=== PATIENT | female | born 1955 | race Caucasian/White ===

== ENCOUNTER 2018-06-20 09:53 | Outpatient (REF) | payer OTHER, SELFPAY ==
--- NOTE | 2018-06-20 09:00 | PAPFT_PTH ---
PATIENT: Viki Morris LOC: [facility] U#:[id number] AGE/SX: 62/F ROOM: RE06/20/[address]: Berenice Gonzalez : 1955 BED: DIS: 06/20/2018 SPEC #: [id number] RECD: 06/20/18 12:53 STATUS: MELIDA REQ #: [id number] [facility]: 06/20/18 09:[address]: Berenice Gonzalez DEPT: [facility] Cytology RECD BY: Bryanna Rosenberg ENTERED: 06/20/18 12:53 SP TYPE: PAPFT OTHR DR: Rosalva Ferguson Tissues: 1 - CX/ENDOCX FOR PAP SMEARS Procedures: PAP THIN PREP/UVM Screening HPV DNA PROBE Comments: [id number]
== END 2018-06-20 10:13 ==
LOC: LBN 09:53
PROVIDERS: PCP Family Medicine; Visit Provider Obstetrics & Gynecology Gynecology
DX: Z12.4 Encounter for screening for malignant neoplasm of cervix (principal); Z11.51 Encounter for screening for human papillomavirus (HPV)
CPT/HCPCS: 88142; 87624

== ENCOUNTER 2018-06-27 09:45 | Outpatient (CLI) | payer OTHER, SELFPAY ==
[2018-06-27 11:31] LABS: Anion Gap 6.3 mmol/L (3-11); BUN 15 mg/dL (7-18); CO2 30.7 mmol/L (21.0-32.0); CREATININE 0.68 mg/dL (0.55-1.02); Calcium 9.4 mg/dL (8.5-10.1); Chloride 104 mmol/L (98-107); Glucose 146 mg/dL (70-100); Potassium 4.4 mmol/L (3.5-5.1); Sodium 141 mmol/L (136-145)
[2018-06-28 10:24] LABS: Hepatitis C Ab w Rflx HCV PCR Negative (NEGAT)
== END 2018-06-27 10:05 ==
PROVIDERS: PCP Family Medicine; Visit Provider Family Medicine
DX: E10.319 Type 1 diabetes mellitus with unspecified diabetic retinopathy without macular edema (principal); Z11.59 Encounter for screening for other viral diseases
CPT/HCPCS: 36415; 80048; 86803

== ENCOUNTER 2018-06-27 12:24 | Outpatient (REF) | payer OTHER, SELFPAY ==
[2018-06-27 13:34] LABS: COMMENT (LAB VIEW ONLY) 60.19 mg/dL; Microalb ug/mg Crea 8.1 ug/mg Cr
== END 2018-06-27 12:44 ==
LOC: NCHCN 12:24
PROVIDERS: PCP Family Medicine; Visit Provider Family Medicine
DX: E10.319 Type 1 diabetes mellitus with unspecified diabetic retinopathy without macular edema (principal)
CPT/HCPCS: 82043; 82570

== ENCOUNTER 2018-07-11 00:30 | Outpatient (CLI) | payer OTHER, SELFPAY ==
--- NOTE | 2018-07-11 09:30 | DI.MAMMO_ITS ---
SYMPTOMS/DIAGNOSIS: PREVENTATIVE CARE, Z00.00, SCREENING, Z12.31 MAMMOGRAMS: Mammograms were interpreted according to the usual protocol including computer analysis with CAD system, tomosynthesis and C view imaging. Comparison with prior examinations. Breast density C. No suspicious masses or microcalcifications are seen. There is no definite evidence of malignancy. IMPRESSION: Negative mammogram. Routine screening is recommended. Category I. MQSA ASSESSMENT OF FINDINGS: Negative. Category 1. Patient will receive a letter notifying them of these results. Bi-RADS category C. The breasts are heterogeneously dense, which may obscure small masses.
== END 2018-07-11 00:50 ==
PROVIDERS: PCP Family Medicine; Visit Provider Obstetrics & Gynecology Gynecology
DX: Z00.00 Encounter for general adult medical examination without abnormal findings (principal); Z12.31 Encounter for screening mammogram for malignant neoplasm of breast
CPT/HCPCS: 77063; 77067

== ENCOUNTER 2018-12-22 07:00 | Outpatient (CLI) | payer OTHER, SELFPAY ==
--- NOTE | 2018-12-22 08:42 | DI.MRI_ITS ---
SYMPTOM/DIAGNOSIS: BACK KPAIN LUMBAR M54.5, SCIATICA LT M54.32 LUMBAR MRI: The study was carried out according to the usual protocol. T2 and T1 sagittal and T1 STIR sagittal and T1 and T2 axial, and T2 axial MSMA pulsed sequences were performed. Severe end plate degenerative changes are identified at L1-2 where there is disc narrowing. There is no evidence of a disc protrusion. There are moderate facet joint degenerative changes and no evidence of spinal stenosis. At L2-3 a disc bulge is demonstrated. There is no evidence of a haile disc herniation. Degenerative changes involving the facet joints are identified. There is no evidence of significant spinal stenosis. At L3-4 there is a small left sided disc herniation. Moderate facet joint degenerative changes are demonstrated and there is prominence of the ligamentum flavum. Severe left neural foraminal stenosis is demonstrated. At L4-5 there are moderate end plate degenerative changes and prominence of the ligamentum flavum and facet joint DJD is evident. Moderate bilateral foraminal stenosis is noted more advanced on the right side. A small disc bulge is evident. There are moderately severe facet joint degenerative changes and no evidence of significant spinal stenosis. There is no evident abnormality involving the lower dorsal cord, conus or phylum terminale. SUMMARY: Findings consistent with multi-level degenerative disc disease and DJD A left sided disc herniation is identified at L2-3 as noted above resulting in left foraminal stenosis. Also there is moderate foraminal stenosis at L4-5 most advanced on the right side. Please see the above discussion.
== END 2018-12-22 07:20 ==
PROVIDERS: PCP Family Medicine; Visit Provider Family Medicine
DX: M54.5 Low back pain (principal); M54.32 Sciatica, left side; M51.36 Other intervertebral disc degeneration, lumbar region; M47.816 Spondylosis without myelopathy or radiculopathy, lumbar region; M51.26 Other intervertebral disc displacement, lumbar region
CPT/HCPCS: 72148

== ENCOUNTER 2019-08-30 14:29 | Emergency (ER) | payer OTHER, SELFPAY ==
[2019-08-30 14:33] VITALS: BP 126/73; PULSE 80; RESP 14; TEMP 36.8; O2SAT 100
--- NOTE | 2019-08-30 15:00 | DI.RAD_ITS ---
EXAM: XR SHOULDER RT COMPLETE 2+V CLINICAL HISTORY: pain, fall c/o fracture humeral neck TECHNIQUE: COMPARISON: LEFT SHOULDER COMPLETE from 09/12/2011 CHEST 2 VIEWS PA,LAT from 06/09/2017 FINDINGS: Three views were obtained. There is an apparent nondisplaced fracture of the humeral neck. There ar e marked degenerative changes of the glenohumeral joint. Probable prior resection of the distal clav icle noted. No other significant abnormality seen. No glenohumeral dislocation seen. IMPRESSION: Nondisplaced proximal humeral fracture.
[2019-08-30] MEDS: Acetaminophen 500 MG TAB 1000 MG PO (15:08)
--- NOTE | 2019-08-30 15:43 | W.ED.GENAD ---
Discharge Plan Disposition Patient Disposition: HOME Condition: Stable Discharge Details Chief Complaint: Orthopedic Clinical Impression: Fracture, humerus, neck Primary Care Provider: Rosalva Ferguson ED Provider: Gina Cuevas Home Meds and New Rx's Prescriptions: No Action atorvastatin 10 mg tablet 10 mg PO DAILY RF: 0 enalapril maleate 2.5 MG tablet 2.5 mg PO DAILY RF: 0 naproxen 250 MG tablet 250 mg PO Q12H PRN RF: 0 aspirin [Aspir-81] 81 MG tablet,delayed release (DR/EC) 81 mg PO DAILY RF: 0 insulin lispro [Humalog KwikPen Insulin] 100 UNIT/1 ML insulin pen 3 - 5 units SQ QMEALS RF: 0 Lantus Solostar U-100 Insulin 100 UNIT/1 ML insulin pen 14 u Sub-Q DAILY RF: 0 cholecalciferol (vitamin D3) [Vitamin D3] 2,000 UNIT capsule 2,000 unit PO HS RF: 0 Discharge Instructions Instructions: Proximal Humerus Fracture (ED) Additional Instructions: Rest. Activities as tolerated. Elevate injury to prevent swelling. Sling as discussed. Remove to perform pendulum exercises when tolerable and pain-free. Follow-up with orthopedic doctor for reevaluation as discussed Ice to the area of discomfort for 15 min. 3-5 times daily. Tylenol every 6 hours for soreness if needed over the counter for comfort. Return for any worsening or concerns sooner if needed. Referrals: Nic Kincaid MD [ [facility] STAFF PHYSICIAN] - Medical Decision Making There is a very pleasant 63-year-old patient presenting to the emergency room for complaints of right shoulder injury. Patient sustained a fall after slipping on the ice at home. Patient denies striking head. Denies any other injuries at this time. Patient has focal right shoulder pain. Patient has limited range of motion of her right shoulder, focal proximal humeral tenderness on exam without obvious deformities present. No other joint tenderness noted. Distal neurovascularly intact. Pulses intact. Furnace Tapper strength normal. Patient has nothing to indicate head injury, neck or back injury at this time. No other extremity complaints. Patient vital signs were reviewed and are stable. Patient is alert and oriented mentating without difficulty. Patient's neurologic exam is normal. We will plan to x-ray the right shoulder. Provided Tylenol for discomfort. Patient agrees with this plan of care. X-ray reveals humeral neck fracture of the right, nondisplaced. Discussed with patient. Rice encouraged, sling encouraged, pendulum exercises discussed when tolerated. Recommended follow-up with orthopedics. Discussed need for pain medication and patient declines at this time would prefer [id number] medication. Counseled regarding appropriate care and management. Patient reports her understanding. Feels appropriate for discharge home at this time. No new complaints have developed since arrival to the emergency room. The patient was stable and requested discharge. Prior to discharge, my usual and customary return precautions were reviewed with the patient - this included follow-up instructions and reasons to return to the Emergency Department if conditions worsens, does not improve as expected, or other new concerns arise. HPI General Date/Time Provider Initiated Documentation: 08/30/19 14:42. HPI Narrative: This is a very pleasant 63-year-old patient presenting to the emergency room for complaints of right shoulder injury. Patient reports she tripped slipped and fell on ice in her yard landing on her right shoulder. Patient reports no loss of consciousness, headache, dizziness, nausea, vomiting, vision change, blurred vision, double vision. Patient denies any current numbness, tingling or weakness in her extremities. Patient denies neck or back pain. Patient points to the proximal right shoulder as site of pain. Patient denies any chest pain, difficulty beating shortness of breath or wheezing. Denies any pain with deep breathing. Denies abdominal pain. Has urinated since her fall and denies any hematuria. No lower extremity complaints. Able to ambulate without difficulty. Arrived by private car. Related Data Home Medications Medication Instructions Recorded Confirmed Lantus Solostar U-100 Insulin 14 u SUB-Q DAILY 06/07/15 08/30/19 aspirin [Aspir-81] 81 mg PO DAILY tab-cap 06/07/15 08/30/19 cholecalciferol (vitamin D3) 2,000 unit PO HS 06/07/15 08/30/19 [Vitamin D3] enalapril maleate 2.5 mg PO DAILY tab-cap 06/07/15 08/30/19 insulin lispro [Humalog KwikPen 3 - 5 units SQ QMEALS 06/07/15 08/30/19 Insulin] naproxen 250 mg PO Q12H PRN tab-cap 01/15/16 04/08/20 atorvastatin 10 mg tablet 10 mg PO DAILY 06/20/18 08/30/19 Allergies Allergy/AdvReac Type Severity Reaction Status Date / Time amoxicillin AdvReac Itchy hands Unverified 08/30/19 14:44 General Stated Complaint: Orthopedic DWAIN: 3 Review of Systems All systems reviewed & are unremarkable except as noted in HPI and below Constitutional Constitutional: Denies fatigue, Denies headache(s) and Denies malaise Eyes Eyes: Denies blurry vision, Denies change in vision and Denies diplopia ENT Ears, Nose, Mouth, and Throat: Denies headache(s) and Denies neck pain Cardiovascular Cardiovascular: Denies chest pain and Denies dyspnea Respiratory Respiratory: Denies cough and Denies dyspnea Gastrointestinal Gastrointestinal: Denies abdominal pain Genitourinary Genitourinary: Denies hematuria Musculoskeletal Musculoskeletal: Denies abnormal gait, Denies back pain, Denies deformity, Denies joint swelling, Reports limited range of motion (Right shoulder), Denies neck pain, Denies numbness, Denies radiating pain into limb and Denies tingling Integumentary/Breasts Skin/Breast: Denies wounds Neurologic Neurologic: Denies abnormal gait, Denies headache(s), Denies numbness and Denies tingling Endocrine Endocrine: Denies fatigue [facility] Medical History Diabetes Hyperlipidemia Neutropenia Surgical History Open Carpal Tunnel release Rotator Cuff Repair Trigger Finger release Family History Grandfather Diabetes Essential hypertension Heart disease Grandfather Personal history of malignant neoplasm stomach Social History Smoking/Tobacco Use Status: Never Alcohol Intake: current Alcohol Intake frequency: 0-2 drinks per day Drug use: Never Substance use type: does not use Household members: spouse Number of Children: 0 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 Female Reproductive History Menstrual Menopause type: natural History History 1 Para Hx # Term Pregnancies 0 Multiple births Hx # Pregnancies Ectopic pregnancies AB induced Hx Number of Living Children AB spontaneous Exam Narrative Exam Narrative: CONST: Healthy appearing patient, in no acute distress. Well hydrated. Alert and oriented. HENMT: Head nomocephalic, normal to inspection. Atraumatic. Hearing grossly normal. EYES: General normal appearance. Alignment normal. Eyelids normal. Conjunctiva normal. NECK: Normal visual inspection. FROM. Trachea midline. No Midline tenderness. CHEST: Normal insepection of the chest. No palpable chest tenderness through the rib cage bilaterally anteriorly or posteriorly RESP: Normal respiratory effort. Speaking full sentences. No cough. No audible wheezing. No retractions. Breath sounds clear, full and equal bilaterally CARDIO: No JVD. No murmur, regular rate and rhythm Abdomen: Abdomen is soft, nontender. No peritoneal signs, rebound or guarding. No evidence of trauma Back: No midline tenderness through the cervical, thoracic or lumbar spine. No ecchymosis or erythema. No evidence of trauma. MUSCULOSKELETAL: Normal Gait. Normal exam of left arm, and bilateral lower extremities. Strength intact through all extremities. Distal neurovascularly intact. Pulses intact. Right arm exam: No clavicle tenderness noted in the right, proximal humeral tenderness noted, limited range of motion due to pain in the shoulder. No mid to distal humeral tenderness, no elbow pain with palpation with supination pronation intact at elbow. No forearm pain, wrist pain or hand pain with palpation. Pulses intact. Sensation intact distally. Furnace Tapper strength intact of hand. No focal deformities noted SKIN: Normal. Dry. No rashes. NEURO: Alert and awake. Speech clear. Alert and oriented x 3. Speech is clear. Cranial nerves intact as tested III - XI. No Nystagmus. Gait normal. Strength intact in all extremities. Sensation intact in all extremities. PSYCH: Normal affect. Cooperative. Course Vital Signs Vital signs: Vital Signs Temperature 36.8 C 08/30/19 14:33 Pulse 80 08/30/19 14:33 Respiratory Rate 14 08/30/19 14:33 Blood Pressure 126/73 08/30/19 14:33 Pulse Oximetry 100 08/30/19 14:33 Temperature 36.8 C 08/30/19 14:33 Temperature Source Temporal Artery Scan 08/30/19 15:16 Pulse 80 08/30/19 14:33 Respiratory Rate 14 08/30/19 14:33 Respiratory Effort 08/30/19 14:45 Blood Pressure 126/73 08/30/19 14:33 Blood Pressure Position Sitting 08/30/19 14:33 Pulse Oximetry 100 04/08/20 14:33 Oxygen Delivery Method Room Air 08/30/19 14:33 Oxygen Flow Rate 0 08/30/19 14:33 Pain Level 3 08/30/19 14:33 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
--- NOTE | 2019-08-30 16:32 | NUR.NOTE ---
Nursing Note: referral faxed to ortho for follow up alida caban
== END 2019-08-30 16:30 | disposition home or self-care (01) ==
LOC: ER 20:18
PROVIDERS: Emergency Provider Physician Assistant; PCP Family Medicine
DX: S42.294A Other nondisplaced fracture of upper end of right humerus, initial encounter for closed fracture (principal); W00.0XXA Fall on same level due to ice and snow, initial encounter; E11.9 Type 2 diabetes mellitus without complications
CPT/HCPCS: 23600; 73030; L3650

== ENCOUNTER 2019-09-13 10:43 | Outpatient (CLI) | payer OTHER, SELFPAY ==
--- NOTE | 2019-09-13 10:30 | DI.RAD_ITS ---
EXAM: XR SHOULDER RT COMPLETE 2+V CLINICAL HISTORY: fracture TECHNIQUE: 2D digital imaging was performed. COMPARISON: XR SHOULDER RT COMPLETE 2+V from 08/30/2019 FINDINGS: There has been no change in the alignment of the previously noted fracture of the surgical neck of th e humerus. A metallic anchor is again noted in the proximal humerus. There has been previous distal clavicular resection. Spurring is noted at the glenohumeral joint. IMPRESSION: Stable appearance of proximal humeral fracture.
== END 2019-09-13 11:03 ==
PROVIDERS: PCP Family Medicine; Visit Provider Physician Assistant Surgical
DX: S42.211D Unspecified displaced fracture of surgical neck of right humerus, subsequent encounter for fracture with routine healing (principal)
CPT/HCPCS: 73030

== ENCOUNTER 2019-10-25 12:27 | Outpatient (CLI) | payer OTHER, SELFPAY ==
--- NOTE | 2019-10-25 11:15 | DI.RAD_ITS ---
EXAM: XR SHOULDER RT COMPLETE 2+V CLINICAL HISTORY: fu fracture TECHNIQUE: COMPARISON: CR XR SHOULDER RT COMPLETE 2+V from 08/30/2019 CR XR SHOULDER RT COMPLETE 2+V from 09/13/2019 FINDINGS: Two views were obtained. Previously described fracture of the proximal humerus is again noted, no gr oss interval change in alignment of the fracture fragments allowing for differences in projection in comparison with prior films of September 12. Resection of the distal end of the clavicle and degenerative changes of the glenohumeral joint again noted. IMPRESSION:
== END 2019-10-25 12:47 ==
PROVIDERS: PCP Family Medicine; Referring Provider Family Medicine; Visit Provider Student in an Organized Health Care Education/Training Program
DX: S42.211D Unspecified displaced fracture of surgical neck of right humerus, subsequent encounter for fracture with routine healing (principal); M19.011 Primary osteoarthritis, right shoulder
CPT/HCPCS: 73030

== ENCOUNTER 2020-01-01 13:17 | Outpatient (REF) | payer OTHER, SELFPAY ==
[2020-01-03 19:54] LABS: SARS-CoV-2 RNA Undetected (Undetected); SARS-CoV-2 Specimen Source Nasopharynx
== END 2020-01-01 13:37 ==
LOC: NCHCN 13:17
PROVIDERS: PCP Family Medicine; Visit Provider Family Medicine
DX: Z11.59 Encounter for screening for other viral diseases (principal)
CPT/HCPCS: U0003

== ENCOUNTER 2020-01-18 04:27 | Outpatient (CLI) | payer OTHER, SELFPAY ==
[2020-01-18 07:56] LABS: HCT 41.7 % (36.0-46.0); MCH 32.3 pg (27.0-33.0); MCHC 33.6 % (32.0-36.0); MCV 96.3 fL (80-95); MPV 10.6 fL (8.0-11.0); Platelet Count 185 10^3/uL (130-400); RBC 4.33 10^6/uL (3.93-5.22); RDW 11.7 % (11.7-14.6); RDW-SD 41.6 fL; WBC 3.64 10^3/uL (4.4-10.8)
[2020-01-18 08:19] LABS: Hemoglobin A1C 6.8 % (3.8-5.6)
[2020-01-18 08:56] LABS: COMMENT (LAB VIEW ONLY) 83.44 mg/dL; Microalb ug/mg Crea 7.2 ug/mg Cr
[2020-01-18 09:02] LABS: ALT 34 U/L (14-59); AST 22 U/L (15-37); Albumin 3.9 g/dL (3.4-5.0); Alkaline Phosphatase 99 U/L (46-116); BUN 12 mg/dL (7-18); Bilirubin, Total 0.9 mg/dL (0.2-1.0); CREATININE 0.67 mg/dL (0.55-1.02); Calcium 9.1 mg/dL (8.5-10.1); Calculated LDL 76 mg/dL (<100); Chloride 105 mmol/L (98-107); Cholesterol 192 mg/dL (<200); Glucose 161 mg/dL (74-106); HDL Cholesterol 108 mg/dL (40-60); Potassium 4.6 mmol/L (3.5-5.1); Sodium 139 mmol/L (136-145); Total Protein 6.7 g/dL (6.4-8.2); Triglyceride 42 mg/dL (<150)
[2020-01-18 09:14] LABS: Vitamin D 25 Total 39.9 ng/ml (30-100)
== END 2020-01-18 04:47 ==
PROVIDERS: PCP Family Medicine; Visit Provider Family Medicine
DX: Z00.00 Encounter for general adult medical examination without abnormal findings (principal); E10.319 Type 1 diabetes mellitus with unspecified diabetic retinopathy without macular edema; E78.5 Hyperlipidemia, unspecified; D70.9 Neutropenia, unspecified
CPT/HCPCS: 36415; 80053; 80061; 82306; 85027; 82043; 82570; 83036

== ENCOUNTER 2020-05-28 00:47 | Outpatient (CLI) | payer OTHER, SELFPAY ==
--- NOTE | 2020-05-28 | DI.MAMMO_ITS ---
EXAM: MG MAMMO SCREENING CLINICAL HISTORY: SCREENING,Z12.31 TECHNIQUE: Bilateral full field digital CC and MLO mammographic images were obtained with 3D tomosyn thesis and utilizing computer aided detection (CAD). COMPARISON: Available for comparison. FINDINGS: Masses/Architectural Distortion: None seen. Microcalcifications: No suspicious pleomorphic-type are seen. Skin Thickening/Nipple Retraction: None. IMPRESSION: 1. No significant interval change with no specific features of malignancy noted. 2. Unless there is more urgent need, screening mammography is recommended, as per [employer] guidelines. BI-RADS Category 1 - Negative Breast Density - Category C - Heterogeneously dense Breast density category C or D implies that the patient has dense breast tissue. Dense breast tissue is very common and is not abnormal but dense breast tissue can make it harder to find cancer on a ma mmogram. Also, dense breast tissue may increase their breast cancer risk. This information about the result of the mammogram report was provided to the patient to raise their awareness. Use this report when you speak with the patient about their risks for breast cancer, which includes their family hist ory. At that time, you may recommend for more screening tests (Ultrasound or MRI) as they might be us eful based on their risk. A negative radiographic report should not delay biopsy if a dominant or clinically suspicious mass is present. Up to ten percent of cancers are not identified on mammography. A negative report may reinforce clinical impression. Adenosis and dense breasts may obscure an underlying neoplasm. False positive reports average 6 to 10%. Patient will receive a letter notifying them of these results.
== END 2020-05-28 01:07 ==
PROVIDERS: PCP Family Medicine; Visit Provider Family Medicine
DX: Z12.31 Encounter for screening mammogram for malignant neoplasm of breast (principal)
CPT/HCPCS: 77063; 77067

== ENCOUNTER 2020-09-04 18:00 | Outpatient (CLI) | payer OTHER, SELFPAY ==
--- NOTE | 2020-09-04 | DI.RAD_ITS ---
EXAM: XR FOOT LT COMPLETE CLINICAL HISTORY: LT FOOT PAIN, M79.672, NO TRAUMA, PAIN LT 5TH TOE/METATARSAL, ? STRESS FX. TECHNIQUE: 2D digital imaging was performed. COMPARISON: No exams were available for comparison FINDINGS: There is no evidence of acute fracture or diastasis of the Lisfranc joint. No osseous lesions nor er osions. No osseous tarsal coalition. No radiopaque foreign body. IMPRESSION: No fracture evident. DATA REPOSITORY: RADIATION DOSE DELIVERED:
== END 2020-09-04 18:20 ==
PROVIDERS: PCP Family Medicine; Visit Provider Family Medicine
DX: M79.672 Pain in left foot (principal); M79.675 Pain in left toe(s)
CPT/HCPCS: 73630

== ENCOUNTER 2020-10-28 18:42 | Outpatient (REF) | payer OTHER, SELFPAY ==
[2020-10-28 19:04] LABS: COMMENT (LAB VIEW ONLY) 34.22 mg/dL; Microalb ug/mg Crea 5.3 ug/mg Cr
== END 2020-10-28 18:43 | disposition home or self-care (01) ==
LOC: NCHCN 18:42
PROVIDERS: PCP Family Medicine; Visit Provider Family Medicine
DX: E10.319 Type 1 diabetes mellitus with unspecified diabetic retinopathy without macular edema (principal)
CPT/HCPCS: 82043; 82570

== ENCOUNTER 2021-04-02 19:15 | Outpatient (REF) | payer OTHER, SELFPAY ==
[2021-04-04 15:54] LABS: COVID-19 RT-PCR UVMMC Result Negative (Negative)
[2021-04-04 21:30] LABS: C Diff PCR Negative (Negative)
[2021-04-06 23:03] LABS: Campylobacter PCR Negative (Negative); Salmonella PCR Negative (Negative); Shiga Toxin PCR Negative (Negative); Shigella/Enteroinvasive Ecoli Negative (Negative)
[2021-04-08 18:05] LABS: Calprotectin <15.6 mcg/g
== END 2021-04-02 19:16 | disposition home or self-care (01) ==
LOC: NCHCN 19:15
PROVIDERS: PCP Family Medicine; Visit Provider Family Medicine
DX: Z20.822 Contact with and (suspected) exposure to COVID-19 (principal); R19.7 Diarrhea, unspecified
CPT/HCPCS: 87329; 87493; 87505; U0003; 83993

== ENCOUNTER 2021-04-30 02:14 | Outpatient (CLI) | payer OTHER, SELFPAY ==
[2021-04-30 14:49] LABS: Abs Immature Grans 0.01 10^3/uL (0.0-0.06); Absolute Basophil Count 0.03 10^3/uL (0.0-0.2); Absolute Eosinophil Count 0.11 10^3/uL (0.0-0.7); Absolute Neutrophil Count 2.84 10^3/uL (1.2-6.7); Basophils % 0.6; Eosinophils % 2.2; HCT 38.9 % (36.0-46.0); HGB 12.8 g/dL (11.2-15.7); Immature Grans % 0.2; Lymphocytes % 32.1; MCH 32.2 pg (27.0-33.0); MCHC 32.9 % (32.0-36.0); MCV 97.7 fL (80-95); MPV 9.8 fL (8.0-11.0); Neutrophils % 56.9; Nucleated RBC 0 %; Platelet Count 181 10^3/uL (130-400); RBC 3.98 10^6/uL (3.93-5.22); RDW 11.8 % (11.7-14.6); RDW-SD 42.7 fL; WBC 4.99 10^3/uL (4.4-10.8)
[2021-04-30 15:27] LABS: Hemoglobin A1C 6.6 % (<5.7)
[2021-04-30 16:10] LABS: Anion Gap 7.5 mmol/L (3-11); BUN 13 mg/dL (7-18); CO2 30.5 mmol/L (21.0-32.0); CREATININE 0.8 mg/dL (0.55-1.02); Calcium 9.1 mg/dL (8.5-10.1); Chloride 102 mmol/L (98-107); Glucose 201 mg/dL (74-106); Sodium 140 mmol/L (136-145)
== END 2021-04-30 02:15 | disposition home or self-care (01) ==
LOC: LBO 02:14
PROVIDERS: PCP Family Medicine; Visit Provider Family Medicine
DX: E10.319 Type 1 diabetes mellitus with unspecified diabetic retinopathy without macular edema (principal); D70.9 Neutropenia, unspecified
CPT/HCPCS: 36415; 80048; 83036; 85025

== ENCOUNTER 2021-05-05 10:23 | Outpatient (REF) | payer OTHER, SELFPAY ==
[2021-05-05 18:48] LABS: Ferritin 111 ng/mL (8-252)
[2021-05-07 11:39] LABS: IgA 106 mg/dL (85-499); Interpretation (See Note); Tissue Transglutaminase IgA <1.2 U/mL (<4.0)
== END 2021-05-05 10:24 | disposition home or self-care (01) ==
LOC: NCHCN 10:23
PROVIDERS: PCP Family Medicine; Visit Provider Family Medicine
DX: D64.9 Anemia, unspecified (principal); R10.9 Unspecified abdominal pain; R19.7 Diarrhea, unspecified
CPT/HCPCS: 82784; 83516; 82728

== ENCOUNTER 2021-06-02 01:19 | Outpatient (CLI) | payer OTHER, SELFPAY ==
--- NOTE | 2021-06-02 08:00 | DI.MAMMO_ITS ---
Exam(s) MAMMO SCREENING EXAM: MAMMO SCREENING CLINICAL HISTORY: SCREENING, Z12.31 TECHNIQUE: Mammograms were interpreted according to the usual protocol including computer analysis w [facility] CAD system, tomosynthesis and C-view imaging. COMPARISON: 2012 through 2020 FINDINGS: The breasts are composed of heterogeneously dense fibroglandular densities, Breast Density category C . No suspicious masses or suspicious microcalcifications are seen. No skin thickening or abnormal axillary lymph nodes are seen. There has been no significant change from prior exams. IMPRESSION: BI-RADS Category 1, Negative mammogram. Yearly screening mammography is recommended. Breast Density Category C, heterogeneously Dense. The mammogram demonstrates the patient's breast tissue is dense. Dense breast tissue is very common a nd is not abnormal but dense breast tissue can make it harder to find cancer on a mammogram. Also, de nse breast tissue may increase breast cancer risk. This information about the result of the mammogram report was provided to the patient to raise their awareness. Use this report when you speak with the patient about their risks for breast cancer, which includes their family history. At that time, you may recommend additional screening tests (Ultrasound or MRI) as they might be useful based on their r isk. A negative radiographic report should not delay biopsy if a dominant or clinically suspicious mass is present. Up to ten percent of cancers are not identified on mammography. A negative report may reinforce clinical impression. Adenosis and dense breasts may obscure an underlying neoplasm. False positive reports average 6 to 10%.
== END 2021-06-02 01:39 ==
PROVIDERS: PCP Family Medicine; Visit Provider Family Medicine
DX: Z12.31 Encounter for screening mammogram for malignant neoplasm of breast (principal); R92.8 Other abnormal and inconclusive findings on diagnostic imaging of breast
CPT/HCPCS: 77063; 77067

== ENCOUNTER 2021-06-02 09:01 | Outpatient (CLI) | payer OTHER, SELFPAY ==
--- NOTE | 2021-06-02 08:23 | DI.DEXA_ITS ---
Exam(s) XR DEXA BONE DENSITY W/WO SERA EXAM: XR DEXA BONE DENSITY W/WO SERA CLINICAL HISTORY: OSTEOPOROSIS, POSTMENOPAUSAL, M81.0 TECHNIQUE: Hologic Horizon C densitometer COMPARISON: CR CHEST 2 VIEWS PA,LAT from 06/09/2017 FINDINGS: Lateral view of the thoracic and lumbar spine shows no evidence of compression fractures. Bone mineral density measurements of the lumbar spine correspond to a total T-score of 1.0, in the n ormal range. There are degenerative disc changes with endplate osteophytes and sclerosis at L4-5 whi ch likely falsely elevates the L4 bone mineral density measurements. Bone mineral density measurements of the left hip correspond to a total T-score of -0.8. The femora l neck T-score is -1.9, in the osteopenic range. The left forearm bone mineral density measurements correspond to a T-score of the distal 3rd of -1.4 , in the osteopenic range.. FRAX: Ten year fracture risk major osteoporotic fracture is calculated at 16 percent. Ten year risk of hip fracture calculated at 2.3 percent.. IMPRESSION: Osteopenia of the left forearm and left hip. Normal bone mineral density of the lumbar spine.
== END 2021-06-02 09:21 ==
PROVIDERS: PCP Family Medicine; Visit Provider Nurse Practitioner Family
DX: M81.0 Age-related osteoporosis without current pathological fracture (principal); M85.832 Other specified disorders of bone density and structure, left forearm; M85.88 Other specified disorders of bone density and structure, other site
CPT/HCPCS: 77080

== ENCOUNTER 2022-01-22 12:30 | Outpatient (REF) | payer BC, SELFPAY ==
[2022-01-23 18:08] LABS: Albumin, Ur < 0.6 mg/dL (See Note); Creatinine, Ur 16.8 mg/dL (See Note)
== END 2022-01-22 12:31 | disposition home or self-care (01) ==
LOC: NCHCN 12:30
PROVIDERS: PCP Family Medicine; Visit Provider Family Medicine
DX: E10.319 Type 1 diabetes mellitus with unspecified diabetic retinopathy without macular edema (principal)
CPT/HCPCS: 82043; 82570

== ENCOUNTER 2022-02-05 03:57 | Outpatient (CLI) | payer BC, SELFPAY ==
[2022-02-05 09:41] LABS: Calculated LDL 54 mg/dL (<100); Cholesterol 175 mg/dL (<200); HDL Cholesterol 112 mg/dL (40-60); Triglyceride 46 mg/dL (<150); Vitamin B12 312 pg/mL (193-986)
[2022-02-10 23:18] LABS: Free Retinol (Vitamin A) 31.3 mcg/dL (32.5-78.0)
== END 2022-02-05 03:58 | disposition home or self-care (01) ==
LOC: LBO 03:57
PROVIDERS: PCP Family Medicine; Visit Provider Family Medicine
DX: E78.5 Hyperlipidemia, unspecified (principal); M85.80 Other specified disorders of bone density and structure, unspecified site; Z12.31 Encounter for screening mammogram for malignant neoplasm of breast; K58.9 Irritable bowel syndrome, unspecified; E10.319 Type 1 diabetes mellitus with unspecified diabetic retinopathy without macular edema
CPT/HCPCS: 36415; 80061; 82306; 82043; 82570; 82607; 84590

== ENCOUNTER 2022-06-23 03:12 | Outpatient (CLI) | payer OTHER, SELFPAY ==
[2022-06-23 08:09] LABS: Anion Gap 5.4 mmol/L (3-11); BUN 10 mg/dL (7-18); CO2 29.6 mmol/L (21.0-32.0); CREATININE 0.7 mg/dL (0.55-1.02); Calcium 9.3 mg/dL (8.5-10.1); Chloride 102 mmol/L (98-107); Estimated GFR 96.52 (mL/min/1.73m2); Glucose 154 mg/dL (74-106); Potassium 4.8 mmol/L (3.5-5.1); Sodium 137 mmol/L (136-145); Vitamin B12 1031 pg/mL (193-986)
[2022-06-26 10:07] LABS: Free Retinol (Vitamin A) 31.5 mcg/dL (32.5-78.0)
== END 2022-06-23 03:13 | disposition home or self-care (01) ==
LOC: LBO 03:12
PROVIDERS: PCP Family Medicine; Visit Provider Family Medicine
DX: Z00.00 Encounter for general adult medical examination without abnormal findings (principal); K58.9 Irritable bowel syndrome, unspecified; M85.80 Other specified disorders of bone density and structure, unspecified site; E53.8 Deficiency of other specified B group vitamins
CPT/HCPCS: 36415; 80048; 82607; 84590

== ENCOUNTER 2022-09-22 01:39 | Outpatient (CLI) | payer OTHER, SELFPAY ==
--- NOTE | 2022-09-22 07:30 | DI.MAMMO_ITS ---
Exam(s) MAMMO SCREENING EXAM: MAMMO SCREENING CLINICAL HISTORY: SCREENING, Z12.31. TECHNIQUE: Bilateral full field digital CC and MLO mammographic images were obtained with 3D tomosyn thesis and utilizing computer aided detection (CAD). COMPARISON: Prior mammograms were reviewed. FINDINGS: There has been no significant change in the appearance and distribution of the fibroglandular tissue which is again noted be moderately dense.. There are no obvious new spiculated masses nor malignant appearing microcalcification groups. There is no significant architectural distortion nor skin thickening-retraction. IMPRESSION: Moderately dense fibroglandular tissue. No obvious radiographic evidence of malignancy nor significa nt change compared to prior mammograms. BI-RADS Category 1 - Negative Breast Density - Category C - Heterogeneously dense Breast density Category C or D implies that the patient has dense breast tissue. Dense breast tissue can make it harder to find cancer on a mammogram. Dense breast tissue is also associated with an incr eased risk of breast cancer. This information about the result of the mammogram report was provided to the patient to raise their awareness. Use this report when you speak with the patient about their risks for breast cancer, which includes their family history. At that time, you may recommend additional screening tests (Ultrasoun d or MRI) as these tests may add significant information. A negative radiographic report should not delay biopsy if a dominant or clinically suspicious mass is present. Up to ten percent of cancers are not identified on mammography. A negative report may reinforce clinical impression. Adenosis and dense breasts may obscure an underlying neoplasm. False positive reports average 6 to 10%. Patient will receive a letter notifying them of these results.
== END 2022-09-22 01:59 ==
PROVIDERS: PCP Family Medicine; Visit Provider Family Medicine
DX: Z12.31 Encounter for screening mammogram for malignant neoplasm of breast (principal)
CPT/HCPCS: 77063; 77067

== ENCOUNTER 2022-12-11 14:16 | Outpatient (REF) | payer MEDICARE, OTHER, SELFPAY ==
[2022-12-11 15:58] LABS: COMMENT (LAB VIEW ONLY) 21.52 mg/dL; Microalb ug/mg Crea 11.6 ug/mg Cr
== END 2022-12-11 14:17 | disposition home or self-care (01) ==
LOC: NCHCN 14:16
PROVIDERS: PCP Family Medicine; Visit Provider Family Medicine
DX: E11.319 Type 2 diabetes mellitus with unspecified diabetic retinopathy without macular edema (principal)
CPT/HCPCS: 82043; 82570

== ENCOUNTER 2023-03-15 09:25 | Outpatient (CLI) | payer MEDICARE, OTHER, SELFPAY ==
--- NOTE | 2023-03-15 | DI.RAD_ITS ---
Exam(s) XR CHEST 2V PA LATERAL EXAM: XR CHEST 2V PA LATERAL CLINICAL HISTORY: PLEURITIC CHEST PAIN, R07.89. TECHNIQUE: 2D digital imaging was performed. COMPARISON: CR CHEST 2 VIEWS PA,LAT from 06/09/2017 FINDINGS: 2 views: Heart size is normal. The mediastinum is not widened. Lungs are clear. No infiltrates nor pleural effusions. Degenerative disc disease in the midthoracic spine noted. IMPRESSION: No acute pulmonary findings. DATA REPOSITORY: RADIATION DOSE DELIVERED:
[2023-03-15 08:45] LABS: C-Reactive Protein < 0.05 mg/dL (0.0-0.3)
[2023-03-15 08:48] LABS: D-Dimer 401 ng/mlFEU (<500)
[2023-03-18 10:49] LABS: ESR (LRH) 5 mm/hr
== END 2023-03-15 09:26 | disposition home or self-care (01) ==
PROVIDERS: PCP Family Medicine; Visit Provider Family Medicine
DX: R07.89 Other chest pain (principal)
CPT/HCPCS: 36415; 85652; 71046; 85379; 86140

== ENCOUNTER → 2023-06-21 01:11 | Outpatient (CLI) | payer MEDICARE, OTHER, SELFPAY ==
--- NOTE | 2023-06-21 | DI.MRI_ITS ---
Exam(s) MR LUMBAR SPINE WO EXAM: MR LUMBAR SPINE WO CLINICAL HISTORY: RADICULOPATHY LUMBAR REGION M54.16 RIGHT SIDED L4 RADICULOPATHY. TECHNIQUE: Multiplanar multisequence MRI of the Lumbar spine was performed. FINDINGS: Bones: The last intervertebral disc space is designated the L5/S1 level for the numbering purpose of this examination. There is a fusion of the L1-L2 disc space. Alignment is satisfactory. Degenerati ve endplate signal changes are present. Cord: The conus tip ends at the T12 level. It is of normal size and signal intensity. T12-L1: No disc herniations or bulges are present. No central spinal canal or neural foraminal stenos is. L1-2: No disc herniations or bulges are present. No central spinal canal or neural foraminal stenosis . L2-3: There is a large central disc herniation. This causes moderately severe central spinal canal s tenosis. There does appear to be bilateral lateral recess stenosis. Mild bilateral neural foraminal narrowing is present. L3-4: There is a diffuse disc bulge. There are degenerative changes of the facets and ligamentum fla vum. There is mild right and moderate left neural foraminal stenosis. L4-5: There is a diffuse disc bulge. There are degenerative changes of the facets and ligamentum fla vum. No significant central spinal canal stenosis is seen. There is moderate bilateral neural parish inal stenosis, right greater than left. L5-S1: There is a mild diffuse disc bulge. There are degenerative changes of the facets. No central spinal canal or neural foraminal stenosis. Soft tissues: The visualized SI joints and sacrum are well maintained. The paraspinal soft tissues ar e unremarkable. Visualized abdominal organs: There is a simple cyst in the left kidney (Bosniak 1). No follow-up is recommended. IMPRESSION: 1. There is now large disc herniation at L2-L3 causing moderately severe central spinal canal stenosi s and bilateral lateral recess stenosis. There is mild bilateral neural foraminal stenosis. 2. Multilevel degenerative changes in the lumbar spine. The findings are most marked at L3-4 and L4- L5 resulting in bilateral neural foraminal stenosis. DATA REPOSITORY:
== END ==
PROVIDERS: PCP Family Medicine; Visit Provider Family Medicine
DX: M48.062 Spinal stenosis, lumbar region with neurogenic claudication (principal)
CPT/HCPCS: 72148

== ENCOUNTER 2023-08-02 17:35 | Outpatient (REF) | payer MEDICARE, SELFPAY ==
[2023-08-02 17:35] LABS: HCT 38.6 % (36.0-46.0); MCH 32.2 pg (27.0-33.0); MCHC 33.7 % (32.0-36.0); MCV 96 fL (80-95); MPV 11.9 fL (8.0-11.0); Platelet Count 162 10^3/uL (130-400); RBC 4.04 10^6/uL (3.93-5.22); RDW 11.8 % (11.7-14.6); RDW-SD 41.4 fL; WBC 3.45 10^3/uL (4.4-10.8)
[2023-08-02 17:45] LABS: Anion Gap 8.7 mmol/L (3-11); BUN 12 mg/dL (7-18); CO2 28.3 mmol/L (21.0-32.0); CREATININE 0.6 mg/dL (0.55-1.02); Chloride 103 mmol/L (98-107); Estimated GFR 99.55 (mL/min/1.73m2); Glucose 167 mg/dL (74-106); Potassium 4.4 mmol/L (3.5-5.1); Sodium 140 mmol/L (136-145)
[2023-08-02 18:10] LABS: Hemoglobin A1C 6.3 % (<5.7)
[2023-08-03 19:52] LABS: HIV-1/2 Ag & Ab Screen Negative (Negative)
== END 2023-08-02 17:36 | disposition home or self-care (01) ==
LOC: NCHCN 17:35
PROVIDERS: PCP Family Medicine; Visit Provider Family Medicine
DX: D70.9 Neutropenia, unspecified (principal); E10.9 Type 1 diabetes mellitus without complications; Z11.4 Encounter for screening for human immunodeficiency virus [HIV]
CPT/HCPCS: 80048; 85027; 87389; 83036

== ENCOUNTER → 2023-11-23 12:42 | Outpatient (CLI) | payer MEDICARE, OTHER, SELFPAY ==
--- NOTE | 2023-11-23 12:30 | DI.RAD_ITS ---
Exam(s) XR FOOT LT COMPLETE EXAM: XR FOOT LT COMPLETE CLINICAL HISTORY: Left foot pain,m79.672. TECHNIQUE: 2D digital imaging was performed. COMPARISON: CR XR FOOT LT COMPLETE from 09/04/2020 FINDINGS: 3 views There is no evidence of fracture or diastasis of the Lisfranc joint. Bone density normal. No osseou s lesions. No erosions. No pes planus. Mild hallux valgus. IMPRESSION: See above. DATA REPOSITORY: RADIATION DOSE DELIVERED:
== END ==
PROVIDERS: PCP Family Medicine; Visit Provider Podiatrist
DX: M79.672 Pain in left foot (principal); M20.12 Hallux valgus (acquired), left foot
CPT/HCPCS: 73630

== ENCOUNTER → 2023-12-09 13:13 | Outpatient (BNVA) | payer MEDICARE, OTHER, SELFPAY | PROVIDERS: PCP Family Medicine; Referring Provider Family Medicine; Visit Provider Podiatrist | DX: M79.675 Pain in left toe(s) (principal); E10.42 Type 1 diabetes mellitus with diabetic polyneuropathy; M21.622 Bunionette of left foot; M21.612 Bunion of left foot; M20.42 Other hammer toe(s) (acquired), left foot; L84 Corns and callosities; L85.8 Other specified epidermal thickening | CPT/HCPCS: 11055; 99213 ==

== ENCOUNTER → 2023-12-17 00:11 | Outpatient (CLI) | payer MEDICARE, OTHER, SELFPAY ==
--- NOTE | 2023-12-17 | DI.MRI_ITS ---
Exam(s) MR LUMBAR SPINE WO EXAM: MR LUMBAR SPINE WO CLINICAL HISTORY: H/O REMOVAL FREE FRAGMENT,NUMBNESS,TNGLING LEGS,LOW BACK PAIN,S/P SURGERY. TECHNIQUE: Multiplanar multisequence MRI of the Lumbar spine was performed. COMPARISON: MR MR LUMBAR SPINE WO from 06/21/2023 FINDINGS: Bones: The last intervertebral disc space is designated the L5/S1 level for the numbering purpose of this examination. There is again seen partial fusion of the L1-L2 disc space. Alignment is satisfa ctory. Endplate degenerative signal changes are present at multiple levels of the lumbar spine. Ther e are endplate osteophytes at multiple levels of the lumbar spine. There is a partial laminectomy at L2 on the right. Cord: The conus tip ends at the T12 level. It is of normal size and signal intensity. T12-L1: No disc herniations or bulges are present. No central spinal canal or neural foraminal stenos is. L1-2: No disc herniations or bulges are present. No central spinal canal or neural foraminal stenosis . L2-3: There is a persistent central disc herniation. It is decreased in size compared to the prior e xamination. It does result in narrowing of the central spinal canal however the AP diameter remains at least 9 mm. There is mild right neural foraminal narrowing. No significant left neural foraminal stenosis is seen. L3-4: There is a mild diffuse disc bulge. Mild degenerative changes of the facets are seen. No sign ificant central spinal canal stenosis is present. Mild bilateral neural foraminal stenosis is seen. L4-5: There is a mild diffuse disc bulge. There are degenerative changes of the facets. No signific ant central spinal canal stenosis is seen. Moderate bilateral neural foraminal stenosis is present. L5-S1: No disc herniations or bulges are present. There are degenerative changes of the facets. No s ignificant central spinal canal stenosis. There is mild narrowing of the neural foramen bilaterally. Soft tissues: The visualized SI joints and sacrum are well maintained. The paraspinal soft tissues ar e unremarkable. IMPRESSION: 1. Persistent moderate size central disc herniation at L2-L3 with mild narrowing of the central spina l canal. The AP diameter remains at least 9 mm. There is mild right neural foraminal narrowing. 2. Multilevel degenerative changes in the lumbar spine as described above. 3. Status post partial laminectomy at L2 on the right. DATA REPOSITORY:
== END ==
PROVIDERS: PCP Family Medicine; Visit Provider Neurological Surgery
DX: M54.50 Low back pain, unspecified (principal); R20.0 Anesthesia of skin; M96.1 Postlaminectomy syndrome, not elsewhere classified
CPT/HCPCS: 72148

== ENCOUNTER → 2024-01-12 08:35 | Outpatient (BNVA) | payer MEDICARE, OTHER, SELFPAY | PROVIDERS: PCP Family Medicine; Visit Provider Podiatrist | DX: E10.9 Type 1 diabetes mellitus without complications (principal); M21.622 Bunionette of left foot; M21.612 Bunion of left foot; M20.42 Other hammer toe(s) (acquired), left foot; L84 Corns and callosities; G62.9 Polyneuropathy, unspecified; M79.672 Pain in left foot; R09.89 Other specified symptoms and signs involving the circulatory and respiratory systems | CPT/HCPCS: 99213 ==

== ENCOUNTER 2024-01-31 01:06 | Outpatient (CLI) | payer MEDICARE, SELFPAY ==
--- NOTE | 2024-01-31 | DI.MAMMO_ITS ---
Exam(s) MAMMO SCREENING EXAM: MAMMO SCREENING CLINICAL HISTORY: Screening, Z12.31 TECHNIQUE: Mammograms were interpreted according to the usual protocol including computer analysis w [employer] CAD system, tomosynthesis and C-view imaging. COMPARISON: 2015 through 2022 FINDINGS: The breasts are composed of heterogeneously dense fibroglandular densities, Breast Density category C . No suspicious masses or suspicious microcalcifications are seen. No skin thickening or abnormal axillary lymph nodes are seen. There has been no significant change from prior exams. IMPRESSION: BI-RADS Category 1, Negative mammogram. Yearly screening mammography is recommended. Breast Density Category C, heterogeneously Dense. The mammogram demonstrates the patient's breast tissue is dense. Dense breast tissue is very common a nd is not abnormal but dense breast tissue can make it harder to find cancer on a mammogram. Also, de nse breast tissue may increase breast cancer risk. This information about the result of the mammogram report was provided to the patient to raise their awareness. Use this report when you speak with the patient about their risks for breast cancer, which includes their family history. At that time, you may recommend additional screening tests (Ultrasound or MRI) as they might be useful based on their r isk. A negative radiographic report should not delay biopsy if a dominant or clinically suspicious mass is present. Up to ten percent of cancers are not identified on mammography. A negative report may reinforce clinical impression. Adenosis and dense breasts may obscure an underlying neoplasm. False positive reports average 6 to 10%.
== END 2024-01-31 01:26 ==
LOC: DI 01:06
PROVIDERS: PCP Family Medicine; Visit Provider Family Medicine
DX: Z12.31 Encounter for screening mammogram for malignant neoplasm of breast (principal)
CPT/HCPCS: 77063; 77067

== ENCOUNTER → 2024-03-08 11:28 | Outpatient (BNVA) | payer MEDICARE, OTHER, SELFPAY | PROVIDERS: PCP Family Medicine; Referring Provider Family Medicine; Visit Provider Podiatrist | DX: M79.672 Pain in left foot (principal); E10.9 Type 1 diabetes mellitus without complications; M21.622 Bunionette of left foot; M21.612 Bunion of left foot; M20.42 Other hammer toe(s) (acquired), left foot; L84 Corns and callosities; G62.9 Polyneuropathy, unspecified | CPT/HCPCS: 99213 ==

== ENCOUNTER 2024-03-24 12:47 | Outpatient (CLI) | payer MEDICARE, OTHER, SELFPAY ==
--- NOTE | 2024-03-24 | DI.RAD_ITS ---
Exam(s) XR KNEE LT 3V AP,LAT,STEPHANIE EXAM: XR KNEE LT 3V AP,LAT,STEPHANIE CLINICAL HISTORY: LT KNEE PAIN,M25.562. TECHNIQUE: 2D digital imaging was performed. Three views. COMPARISON: No exams were available for comparison FINDINGS: BONES: No acute fracture is present. No bony destructive lesion is seen. Minimal periarticular spu rring JOINTS: The knee is normally aligned. The joint spaces are maintained. A small joint effusion is se en. SOFT TISSUE: Normal. IMPRESSION: Small joint effusion. Minimal degenerative changes. DATA REPOSITORY: RADIATION DOSE DELIVERED:
== END 2024-03-24 13:07 ==
LOC: DI 12:47
PROVIDERS: PCP Family Medicine; Visit Provider Family Medicine
DX: M25.562 Pain in left knee (principal)
CPT/HCPCS: 73562

== ENCOUNTER 2024-04-11 16:38 | Outpatient (REF) | payer MEDICARE, OTHER, SELFPAY ==
[2024-04-11 20:19] LABS: CREATININE 0.6 mg/dL (0.55-1.02); Estimated GFR 98.93 (mL/min/1.73m2)
== END 2024-04-11 16:39 | disposition home or self-care (01) ==
LOC: NCHCN 16:38
PROVIDERS: PCP Family Medicine; Visit Provider Student in an Organized Health Care Education/Training Program
DX: Z01.818 Encounter for other preprocedural examination (principal)
CPT/HCPCS: 82565

== ENCOUNTER 2024-05-08 20:22 | Outpatient (REF) | payer MEDICARE, SELFPAY ==
[2024-05-08 20:51] LABS: COMMENT (LAB VIEW ONLY) 46.89 mg/dL; Microalb ug/mg Crea 6.2 ug/mg Cr
== END 2024-05-08 20:23 | disposition home or self-care (01) ==
LOC: NCHCN 20:22
PROVIDERS: PCP Family Medicine; Visit Provider Family Medicine
DX: E11.9 Type 2 diabetes mellitus without complications (principal)
CPT/HCPCS: 82043; 82570

== ENCOUNTER 2024-06-15 02:27 | Outpatient (CLI) | payer MEDICARE, OTHER, SELFPAY ==
--- NOTE | 2024-06-15 | DI.DEXA_ITS ---
Exam(s) XR DEXA BONE DENSITY W/WO SERA EXAM: XR DEXA BONE DENSITY W/WO SERA CLINICAL HISTORY: M85.88 Other specified disorders of bone density and structure, other site TECHNIQUE: [employer] Horizon C densitometer analysis of left hip, lumbar spine and left forearm. Lat eral survey image of the thoracic and lumbar spine. COMPARISON: CR XR DEXA BONE DENSITY W/WO SERA from 06/02/2021 MR MR LUMBAR SPINE WO from 12/17/2023 FINDINGS: Lateral view of the thoracic and lumbar spine shows no evidence of compression fractures. Bone mineral density measurements of the lumbar spine correspond to a total T-score of 0.5, in the n ormal range. This is unchanged from prior. Bone mineral density measurements of the left hip correspond to a total T-score of -1.1. This repre sents a 3.5 percent decrease from 2021. The femoral neck T-score is -1.8, in the osteopenic range. . Theleft forearm bone mineral density measurements correspond to a T-score of the distal 3rd of -1.6, in the osteopenic range.. This is not significantly changed from prior. IMPRESSION: Osteopenia of the hip and forearm. Normal bone mineral density of the spine.
== END 2024-06-15 02:47 ==
LOC: DI 02:28
PROVIDERS: PCP Family Medicine; Visit Provider Family Medicine
DX: M85.88 Other specified disorders of bone density and structure, other site (principal)
CPT/HCPCS: 77080

== ENCOUNTER 2024-07-19 01:45 | Outpatient (CLI) | payer MEDICARE, OTHER, SELFPAY ==
--- NOTE | 2024-07-19 08:25 | DI.MRI_ITS ---
Exam(s) MR LOWER JOINT LT WO EXAM: MR LOWER JOINT LT WO CLINICAL HISTORY: lt knee pain, m25.562,m23.92,internal derangement lt knee. TECHNIQUE: Multiplanar multisequence MRI was performed. COMPARISON: CR XR KNEE LT 3V AP,LAT,STEPHANIE from 03/24/2024 FINDINGS: BONES: There is no fracture or contusion pattern. JOINTS: A moderate-sized joint effusion is present. Articular cartilage: Patellofemoral joint: Articular cartilage is unremarkable. Medial femoral tibial joint: Articular cartilage is unremarkable. Lateral femoral tibial joint: Articular cartilage is unremarkable. LIGAMENTS/TENDONS: Anterior Cruciate: Some surrounding fluid. No focal tear is visible. Posterior Cruciate: Unremarkable. Medial Collateral:Some surrounding fluid. No focal tear is visible. Lateral Collateral ligament complex: Unremarkable. Extensor mechanism: Unremarkable. Medial retinaculum: Unremarkable. Lateral retinaculum: Unremarkable. Popliteus: Unremarkable. MENISCI: The medial meniscus shows irregular abnormal high signal in the posterior horn. There is edema in th e body. The lateral meniscus is unremarkable. MUSCLES: Unremarkable. SOFT TISSUES: Small multiloculated Carbajal's cyst. Mild anterior soft tissue edema. IMPRESSION: Tear the posterior horn of the medial meniscus. Question of MCL and ACL sprains. Joint effusion. Multiloculated Carbajal's cyst. DATA REPOSITORY:
== END 2024-07-19 02:05 ==
LOC: DI 01:45
PROVIDERS: PCP Family Medicine; Visit Provider Student in an Organized Health Care Education/Training Program
DX: M23.222 Derangement of posterior horn of medial meniscus due to old tear or injury, left knee (principal)
CPT/HCPCS: 73721

== ENCOUNTER → 2024-07-27 08:10 | Outpatient (BNVA) | payer MEDICARE, OTHER, SELFPAY | PROVIDERS: PCP Family Medicine; Referring Provider Family Medicine; Visit Provider Student in an Organized Health Care Education/Training Program | DX: S83.242A Other tear of medial meniscus, current injury, left knee, initial encounter (principal); X58.XXXA Exposure to other specified factors, initial encounter | CPT/HCPCS: 20610; 99213; J1010 ==

== ENCOUNTER 2024-09-06 18:35 | Outpatient (REF) | payer MEDICARE, OTHER, SELFPAY ==
[2024-09-06 15:45] LABS: Hemoglobin A1C 6.2 % (<5.7)
[2024-09-06 15:52] LABS: Anion Gap 6.3 mmol/L (3-11); BUN 14 mg/dL (7-18); CO2 28.7 mmol/L (21.0-32.0); CREATININE 0.6 mg/dL (0.55-1.02); Calcium 9.2 mg/dL (8.5-10.1); Chloride 105 mmol/L (98-107); Estimated GFR 98.93 (mL/min/1.73m2); Glucose 158 mg/dL (74-106); Potassium 4.7 mmol/L (3.5-5.1); Sodium 140 mmol/L (136-145)
== END 2024-09-06 18:36 | disposition home or self-care (01) ==
LOC: NCHCN 18:35
PROVIDERS: PCP Family Medicine; Visit Provider Family Medicine
DX: E10.9 Type 1 diabetes mellitus without complications (principal); E78.5 Hyperlipidemia, unspecified
CPT/HCPCS: 80048; 83036

== ENCOUNTER → 2024-09-12 10:23 | Outpatient (BNVA) | payer MEDICARE, OTHER, SELFPAY | PROVIDERS: PCP Family Medicine; Referring Provider Family Medicine; Visit Provider Podiatrist | DX: M79.672 Pain in left foot (principal); E10.9 Type 1 diabetes mellitus without complications; M21.622 Bunionette of left foot; M21.612 Bunion of left foot; M20.42 Other hammer toe(s) (acquired), left foot; L84 Corns and callosities; G62.9 Polyneuropathy, unspecified | CPT/HCPCS: 99213 ==

== ENCOUNTER → 2024-09-29 10:19 | Outpatient (BNVA) | payer MEDICARE, OTHER, SELFPAY | PROVIDERS: PCP Family Medicine; Referring Provider Family Medicine; Visit Provider Physician Assistant | DX: S83.242A Other tear of medial meniscus, current injury, left knee, initial encounter (principal); X58.XXXA Exposure to other specified factors, initial encounter | CPT/HCPCS: 99213 ==

== ENCOUNTER → 2024-11-16 11:10 | Outpatient (BNVA) | payer MEDICARE, OTHER, SELFPAY | PROVIDERS: PCP Family Medicine; Referring Provider Family Medicine; Visit Provider Physician Assistant | DX: S83.242A Other tear of medial meniscus, current injury, left knee, initial encounter (principal); X58.XXXA Exposure to other specified factors, initial encounter | CPT/HCPCS: 20610; J1010 ==

== ENCOUNTER → 2025-01-15 09:54 | Outpatient (BNVA) | payer MEDICARE, OTHER, SELFPAY | PROVIDERS: PCP Family Medicine; Referring Provider Family Medicine; Visit Provider Physician Assistant | DX: S83.242D Other tear of medial meniscus, current injury, left knee, subsequent encounter (principal); X58.XXXD Exposure to other specified factors, subsequent encounter | CPT/HCPCS: 99213 ==

== ENCOUNTER 2025-02-09 10:44 | Outpatient (REF) | payer MEDICARE, OTHER, SELFPAY ==
[2025-02-09 16:53] LABS: Glucose Negative (Negative)
[2025-02-09 17:04] LABS: C & S Indicated? Yes; WBC 20-50 HPF (0-5)
== END 2025-02-09 10:45 | disposition home or self-care (01) ==
LOC: NCHCN 10:44
PROVIDERS: PCP Family Medicine; Visit Provider Physician Assistant
DX: N39.0 Urinary tract infection, site not specified (principal)
CPT/HCPCS: 87077; 81003; 81015; 87086; 87186

== ENCOUNTER 2025-02-19 17:41 | Outpatient (REF) | payer MEDICARE, OTHER, SELFPAY ==
[2025-02-19 17:18] LABS: Glucose Negative (Negative)
[2025-02-19 18:14] LABS: COMMENT (LAB VIEW ONLY) < 13.00 mg/dL; Microalb ug/mg Crea 30.0 ug/mg Cr
== END 2025-02-19 17:42 | disposition home or self-care (01) ==
LOC: NCHCN 17:41
PROVIDERS: PCP Family Medicine; Visit Provider Family Medicine
DX: R39.9 Unspecified symptoms and signs involving the genitourinary system (principal); E10.9 Type 1 diabetes mellitus without complications; E78.5 Hyperlipidemia, unspecified
CPT/HCPCS: 81003; 82043; 82570

== ENCOUNTER 2025-02-23 18:31 | Outpatient (REF) | payer MEDICARE, OTHER, SELFPAY ==
[2025-02-23 19:51] LABS: RBC 0-2 HPF (0-2); WBC 0-2 HPF (0-5)
== END 2025-02-23 18:32 | disposition home or self-care (01) ==
LOC: NCHCN 18:31
PROVIDERS: PCP Family Medicine; Visit Provider Family Medicine
DX: R39.9 Unspecified symptoms and signs involving the genitourinary system (principal)
CPT/HCPCS: 81015; 87086

== ENCOUNTER 2025-03-08 02:04 | Emergency (ER) | payer MEDICARE, OTHER, SELFPAY ==
--- NOTE | 2025-03-08 03:15 | DI.CT_ITS ---
Exam(s) CT HEAD CERVICAL SPINE WO EXAM: CT HEAD CERVICAL SPINE WO CLINICAL HISTORY: fALL, SYNCOPE,LT CHEST PAIN. TECHNIQUE: Imaging Protocol: Axial computed tomography images with coronal and sagittal reformatted images were created and reviewed COMPARISON: No exams were available for comparison FINDINGS: Head CT Ventricles and Extra axial spaces: Normal in size and morphology for the patient's age. Hemorrhage: None. Cerebral parenchyma: No evidence of mass or acute infarct. Mild atrophy. Midline shift: None. Brainstem/Cerebellum: Normal. Calvarium: Normal. Visualized Paranasal sinuses/Mastoids: Clear. Soft tissues: Unremarkable. Cervical Spine CT Exam is mildly limited by motion and metallic artifact. BONES: Vertebral body heights are maintained. Alignment is normal. There is no evidence of acute fracture. Degenerative disc changes and facet degenerative changes are seen, greatest at C6-7. SOFT TISSUES: No paraspinal hematoma. The airway appears intact. No pneumothorax is seen at the lung apices. IMPRESSION: Head CT: No acute abnormality. C-spine CT: Degenerative changes, no acute abnormality. The preliminary [facility] report was reviewed. RADIATION DOSE DELIVERED: 1,060.48mGy.cm Total DLP DATA REPOSITORY: All CT scans at this facility are submitted to the National Radiology Data Registry (NRDR) Dose Index Registry (DIR) with the [employer] (A[employer]). RADIATION OPTIMIZATION: All CT scans at this facility use at least one of these dose optimization techniques: automated exposure control; mA and/or kV adjustment per patient size (includes targeted exams where dose is matched to clinical indication); or iterative reconstruction.
--- NOTE | 2025-03-08 03:15 | DI.CT_ITS ---
Exam(s) CT CHEST PE ABD PELVIS W EXAM: CT CHEST PE ABD PELVIS W CLINICAL HISTORY: FALL, SYNCOPE, LT CHEST PAIN. TECHNIQUE: Imaging Protocol: Axial computed tomography images with coronal and sagittal reformatted images were created and reviewed. Computer aided detection (CAD) was utilized. CONTRAST MATERIAL: Intravenous: Omnipaque 350 Contrast volume:75 ml Oral: / no COMPARISON: CT ABD PELVIS WITH CONTRAST from 09/12/2011 FINDINGS: CHEST: Exam is mildly limited by streak artifact related to patient arm position Pulmonary parenchyma: Expiratory changes. No consolidation. No dominant measurable mass. Tracheobronchial tree: No bronchiectasis. No mucous plugging.No bronchial wall thickening. Pleura: No effusion or pneumothorax. Mediastinum: Within normal limits. Pulmonary arteries: No visible emboli. Cardiovascular: The heart size is normal. No pericardial effusion. Thoracic aorta non-dilated. No evidence of aortic injury. Bones: Nondisplaced fractures of the left posterior 7th through 11th ribs. No lytic or blastic lesions. No compression fractures. Soft tissues: Unremarkable. ABDOMEN and PELVIS: The exam is limited by streak artifact secondary to patient arm positioning. Liver: Normal density. Cyst noted in left lobe. No suspicious mass. Gallbladder and biliary tract: No evidence of stones or wall thickening. No biliary dilatation. Pancreas: Normal density, no abnormal calcifications or inflammatory process. Spleen: Normal. Kidneys: Normal size, contour and axis. No radiodense stones. No obstructive uropathy. No suspicious masses seen. Adrenal glands: No masses seen. Aorta: Abdominal portion non-dilated. Lymph nodes: Within normal limits. Soft tissues: Unremarkable. Bladder: Unremarkable. Bowel: Moderate increased quantity of stool from the cecum through descending colon, consistent with constipation. No obstruction or bowel wall thickening. Stomach and small bowel are unremarkable. Peritoneal cavity: No ascites. No focal collection. No mesenteric inflammatory response. No free air. Bones: No evidence spine or pelvic fracture. Prominent endplate osteophytes at L2-3 with significant encroachment into the central canal. Reproductive organs: Unremarkable for age. IMPRESSION: Nondisplaced fractures of the left 7th through 11th ribs. No evidence of pneumothorax or pulmonary contusion. No acute abnormality in the abdomen or pelvis. The preliminary [facility] report was reviewed. RADIATION DOSE DELIVERED: 834.5mGy.cm Total DLP DATA REPOSITORY: All CT scans at this facility are submitted to the National Radiology Data Registry (NRDR) Dose Index Registry (DIR) with the [employer] (ACR). RADIATION OPTIMIZATION: All CT scans at this facility use at least one of these dose optimization techniques: automated exposure control; mA and/or kV adjustment per patient size (includes targeted exams where dose is matched to clinical indication); or iterative reconstruction.
--- NOTE | 2025-03-08 05:15 | RT.EKG_ITS ---
APPROVED REPORT Exam: Resting ECG Reason for Exam: LEFT CHEST PAIN,SYNCOPE Patient Location: E HR:74 bpm ECG Measurements Heart Rate 74 AXIS AL 133 P 71 QRSd 78 QRS 26 QT 362 T 49 QTc 401 Conclusion Sinus rhythm...normal P axis, V-rate 60- 99 Low voltage, precordial leads...precordial leads <1.0mV I have reviewed and interpreted ECG and agree with software generated interpretation.
[2025-03-08 05:25] LABS: Anion Gap 6.4 mmol/L (3-11); BUN 13 mg/dL (7-18); CO2 31.6 mmol/L (21.0-32.0); Calcium 9.0 mg/dL (8.5-10.1); Chloride 102 mmol/L (98-107); Estimated GFR 102.73 (mL/min/1.73m2); Glucose 57 mg/dL (74-106); Magnesium 2.0 mg/dL (1.8-2.4); NT-proBNP 62 pg/mL (<300); Potassium 3.8 mmol/L (3.5-5.1); Sodium 140 mmol/L (136-145); Troponin I 5 ng/L (<or=51)
--- NOTE | 2025-03-08 05:34 | W.ED.GENAD ---
Discharge Plan Disposition Patient Disposition: Home Condition: Good Discharge Details Clinical Impression: Syncope, Fracture of rib of left side Primary Care Provider: Rosalva Ferguson ED Provider: Unknown,Unknown Home Meds and New Rx's Prescriptions: New lidocaine [Lidoderm] 5 % adhesive patch,medicated 1 patch Topical Q24H Qty: 20 0RF No Action enalapril maleate 2.5 MG tablet 2.5 mg PO DAILY cholecalciferol (vitamin D3) [Vitamin D3] 2,000 UNIT capsule 2,000 unit PO HS glucagon HCl [Glucagon (HCl) Emergency Kit] 1 mg recon soln 1 mg subcut Q20M PRN Rx Instructions: until target blood sugar attained ICaps AREDS [id number],[id number] capsule 1 cap PO BID atorvastatin 10 mg tablet 20 mg PO DAILY insulin degludec [Tresiba FlexTouch U-100] 100 unit/mL (3 mL) insulin pen 11 unit subcut DAILY insulin lispro [Humalog KwikPen Insulin] 100 unit/mL insulin pen 2 - 5 unit subcut TID vitamin A 2,400 mcg capsule 2,400 mcg PO DAILY gabapentin 300 mg capsule 300 mg PO QHS cyanocobalamin (vitamin B-12) 1,000 mcg capsule 1,000 mcg PO DAILY Discharge Instructions Instructions: How to Use an Incentive Spirometer, Rib fractures in adults Additional Instructions: This time your workup is returned and shows no evidence of significant electrolyte abnormality, heart problem, or other significant pathology. Unfortunately from your fall you have fractured your 7th, 8th, 9th, 10th, and 11th rib. Please take Tylenol and Motrin every 6 hours as needed for pain. Additionally, please apply the Lidoderm patches as prescribed. You can apply up to 3 at a time to the affected tender areas on the left. Please use your incentive spirometer to help with the breathing. Please use this 5-10 times per day to help reduce likelihood of pneumonia. If you notice that the pain is severe and you are not able to manage it at home, you do have the option of returning and our anesthesia services can perform a rib block. If you notice any worsening of your symptoms, or any new symptoms such as vomiting, diarrhea, fever, chills, shortness of breath, chest pain, numbness, weakness, or fainting , please return immediately to the emergency department for reevaluation. Please follow up with your primary care provider as soon as possible for reassessment and reevaluation. As always, it was a pleasure participating in your medical care today. Referrals: Rosalva Ferguson MD [Primary Care Provider, Medicine] HPI General Date/Time Provider Initiated Documentation: 03/08/25 05:34. Related Data Home Medications ?Medication ?Instructions ?Recorded ?Confirmed cholecalciferol (vitamin D3) 50 2,000 unit PO HS 06/07/15 01/15/25 mcg (2,000 unit) capsule (Vitamin D3) enalapril maleate 2.5 mg tablet 2.5 mg PO DAILY 06/07/15 01/15/25 glucagon HCl 1 mg solution for 1 mg subcut Q20M PRN 06/20/21 01/15/25 injection (Glucagon (HCl) Emergency Kit) vitamins A,C,Q-wwec-vqrmea 4,296 1 cap PO BID 06/20/21 01/15/25 mcg-226 mg-90 mg capsule (ICaps AREDS) atorvastatin 10 mg tablet 20 mg PO DAILY 02/02/25 cyanocobalamin (vitamin B-12) 1,000 mcg PO DAILY 02/02/25 1,000 mcg capsule gabapentin 300 mg capsule 300 mg PO QHS 02/02/25 insulin degludec 100 unit/mL (3 11 unit subcut DAILY 02/02/25 mL) subcutaneous pen (Tresiba FlexTouch U-100 insulin) insulin lispro 100 unit/mL 2 - 5 unit subcut TID 02/02/25 subcutaneous pen (Humalog KwikPen (U-100) Insulin) vitamin A 2,400 mcg capsule 2,400 mcg PO DAILY 02/02/25 lidocaine 5 % topical patch 1 patch topical Q24H #20 ea 03/08/25 (Lidoderm) Previous Rx's ?Medication ?Instructions ?Recorded lidocaine 5 % topical patch 1 patch topical Q24H #20 ea 03/08/25 (Lidoderm) Allergies Allergy/AdvReac Type Severity Reaction Status Date / Time amoxicillin AdvReac Itchy hands Verified 01/15/25 10:09 General DWAIN: 3 Course Lab/Test Results Lab/Test Results: Laboratory Tests Range/Units 03/08/25 02:23 Sodium (136-145) mmol/L 140 Potassium (3.5-5.1) mmol/L 3.8 Chloride (98-107) mmol/L 102 Carbon Dioxide (21.0-32.0) mmol/L 31.6 Anion Gap (3-11) mmol/L 6.4 BUN (7-18) mg/dL 13 Creatinine (0.55-1.02) mg/dL 0.5 L Est GFR (CKD-EPI 2020) (mL/min/1.73m2) 102.73 Glucose (74-106) mg/dL 57 L Calcium (8.5-10.1) mg/dL 9.0 Magnesium (1.8-2.4) mg/dL 2.0 Troponin I (<or=51) ng/L 5 NT-Pro-B Natriuret Pep (<300) pg/mL 62 Medical Decision Making Patient was seen and manage during downtime. Please refer to downtime documentation. FINDINGS: Limitations: Images are degraded due to artifact caused by patient motion and arm positioning. Pulmonary arteries: No pulmonary embolus is appreciated. Aorta: No evidence for thoracic aortic injury. Lungs: Dependent changes are present in the lungs. No pulmonary contusion. Pleural spaces: No pneumothorax. No hemothorax. Heart: No pericardial effusion. Coronary arteries: Coronary artery calcifications. Lymph nodes: No acute abnormality seen. Intraperitoneal space: CT scan of the abdomen and pelvis dictated separately. Bones/joints: Nondisplaced fractures of the left posterior 7th, 8th, 9th, 10th, 11th ribs. Lower ribs incompletely imaged. Soft tissues: No acute pertinent abnormality seen. IMPRESSION: 1. Left rib fractures as above. 2. Additional studies dictated separately. FINDINGS: Lungs: CT scan of the chest dictated separately. Liver: Cyst in the left hepatic lobe. Gallbladder and biliary ducts: No radiodense gallbladder calculi seen. Pancreas: No CT evidence for acute pancreatitis. Spleen: No splenomegaly. Adrenal glands: No mass. Kidneys and ureters: Left renal cyst. Stomach and bowel: No intestinal obstruction is evident. Retained fecal material is present in the colon. Appendix: No evidence of appendicitis. Intraperitoneal space: No free air. Vasculature: Arterial calcifications. Lymph nodes: Nonspecific mesenteric lymph nodes. Urinary bladder: No acute findings. Reproductive: No acute findings. Bones/joints: No pertinent acute abnormality seen. Soft tissues: Small fat containing umbilical hernia. IMPRESSION: 1. No acute internal injury appreciated in the abdomen or pelvis. 2. Additional studies dictated separately. Thank you for allowing us to participate in the care of your patient. Dictated and Authenticated by: Armida Bates MD 03/08/2025 4:20 AM Eastern Time ([place] & [place]) [facility] All Active Problems (Updated 03/08/25 @ 05:35 by Stevo Rodríguez DO) Fracture of rib of left side (Acute) Syncope (Chronic) Vertigo (Acute) Tear of medial meniscus of left knee (Acute) DEPO MEDROL 40MG-- 11/16/24; 07/27/24 Internal derangement of left knee (Acute) Neuropathy (Acute) Corns and callosities (Acute) Hammertoe of left foot (Acute) Bunion, left foot (Acute) Tailor's bunion of left foot (Acute) Sensorineural hearing loss (SNHL) of both ears (Acute) Rotator cuff tear, right (Acute ~05/2012) Biceps tendinitis of right upper extremity (Acute ~09/2019) Fracture, humerus, neck (Acute ~09/13/19) Medical History (Updated 03/08/25 @ 05:35 by Stevo Rodríguez DO) Greater trochanteric pain syndrome 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 Low back pain Thoracic spine pain Hearing loss Pain, joint, knee Osteopenia IBS (irritable bowel syndrome) Right sided sciatica Lumbosacral radiculopathy Macular degeneration Sciatica Lumbar back pain Insomnia Type 1 diabetes mellitus Diabetic neuropathy Trochanteric bursitis, left hip Left foot pain Acute diarrhea Neutropenia Hyperlipidemia Diabetes Surgical History (Updated 02/02/25 @ 11:45 by Altagracia Emanuel RN) Status post de Quervain release surgery History of cardiac cath History of laminectomy for decompression and exploration Lumbar laminotomy, decompression, foraminotomy History of spinal surgery [place] facetec & foramot lumbar left microscopic L2-3 medial Trigger Finger release Rotator Cuff Repair Open Carpal Tunnel release Family History (Updated 02/02/25 @ 11:46 by Altagracia Emanuel RN) Grandfather Diabetes Essential hypertension Heart disease Grandfather Personal history of malignant neoplasm stomach Father Diabetes Heart disease Sister Asthma Social History Smoking/Tobacco Use Status: Never Smoking risk assessment performed?: Yes Alcohol Intake: current Alcohol Intake frequency: 0-2 drinks per day Drug use: Never Substance use type: does not use Household members: spouse Number of Children: 0 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 Female Reproductive History Menstrual Menopause type: natural History History 1 Para Hx # Term Pregnancies 0 Multiple births Hx # Pregnancies Ectopic pregnancies AB induced Hx Number of Living Children AB spontaneous
[2025-03-08 05:36] LABS: Abs Immature Grans 0.02 10^3/uL (0.0-0.06); HCT 37.1 % (36.0-46.0); HGB 12.7 g/dL (11.2-15.7); Immature Grans % 0.6 %; MCH 33.1 pg (27.0-33.0); MCHC 34.2 % (32.0-36.0); MCV 97 fL (80-95); MPV 9.7 fL (8.0-11.0); Platelet Count 192 10^3/uL (130-400); RBC 3.84 10^6/uL (3.93-5.22); RDW 11.9 % (11.7-14.6); RDW-SD 42.3 fL; WBC 3.62 10^3/uL (4.4-10.8)
[2025-03-08 05:40] LABS: Troponin I 5 ng/L (<or=51)
[2025-03-08 05:49] LABS: Glucose Negative (Negative)
[2025-03-08] MEDS: Omnipaque 350 MG/ML 100 ML BTL IJ (07:29)
[2025-03-08] MEDS: Normal Saline - Diluent 50 ML VIAL IJ (07:29)
[2025-03-08] MEDS: Normal Saline Flush 10 ML SYR IVP (07:30)
== END 2025-03-08 06:43 | disposition home or self-care (01) ==
LOC: ER 05:58
PROVIDERS: Emergency Provider Student in an Organized Health Care Education/Training Program; PCP Family Medicine
DX: S22.32XA Fracture of one rib, left side, initial encounter for closed fracture (principal); R55 Syncope and collapse; W19.XXXA Unspecified fall, initial encounter
CPT/HCPCS: 99284; 99285; 71275; 74177; 80048; 93005; 70450; 72125; 81003; 83735; 83880; 84484; 85025; 93010; J3490